=== PATIENT | female | born 1995 | race Caucasian/White ===

== ENCOUNTER 2018-03-02 05:28 | Emergency (ER) | payer OTHER ==
[~2018-03-02] VITALS: Ht 165.1 cm; Wt 70.8 kg
[~2018-03-02 05:28] MED LIST: INTESTINEX1 CAP PO; MOTRIN800 MG PO
== END 2018-03-02 14:44 | disposition home or self-care (01) ==
LOC: ER 05:28
DX: K52.9 Noninfective gastroenteritis and colitis, unspecified (principal)

== ENCOUNTER 2023-03-26 11:31 | Emergency (ER) | payer OTHER ==
[~2023-03-26] VITALS: Ht 165.1 cm; Wt 81.6 kg
[2023-03-26] MEDS ORDERED: PAXLOVID 300-11 EACH PO (14:35)
[2023-03-26] MEDS ORDERED: TUSNEL LIQUID178 ML PO (14:35)
[2023-03-26] MEDS ORDERED: VENTOLIN HFA18 GM IH (14:35)
== END 2023-03-26 14:56 | disposition home or self-care (01) ==
LOC: ER 11:31
PROVIDERS: General Practice
DX: U07.1 COVID-19 (principal)

== ENCOUNTER 2024-03-04 10:03 | Outpatient (CLI) | payer OTHER ==
[~2024-03-04 10:03] MED LIST changes: +PAXLOVID 300-11 EACH PO; +TUSNEL LIQUID178 ML PO; +VENTOLIN HFA18 GM IH
== END 2024-03-04 10:06 | disposition home or self-care (01) ==
LOC: SONOGRAMA 10:03
PROVIDERS: ATTEND Pathology Anatomic Pathology & Clinical Pathology
DX: R59.0 Localized enlarged lymph nodes (principal); R59.9 Enlarged lymph nodes, unspecified